=== PATIENT | female | born 1970 | race African-American/Black ===

== ENCOUNTER 2016-07-10 18:58 | Emergency (ER) | payer OTHER ==
[~2016-07-10] VITALS: Ht 149.9 cm; Wt 46.7 kg
[2016-07-10 19:14] VITALS: BP 113/77
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
[2016-07-10] MEDS ORDERED: CYCLOBENZAPRINE5 M2 PO (20:07)
[2016-07-10] MEDS ORDERED: PERCOCET 5-3251 EACH PO (20:07)
== END 2016-07-10 20:15 ==
LOC: ERH 18:58
DX: S16.1XXA Strain of muscle, fascia and tendon at neck level, initial encounter (principal); V49.50XA Passenger injured in collision with unspecified motor vehicles in traffic accident, initial encounter; Y92.410 Unspecified street and highway as the place of occurrence of the external cause
CPT/HCPCS: 81025

== ENCOUNTER 2017-08-02 17:30 | Emergency (ER) | payer OTHER ==
[~2017-08-02] VITALS: Ht 149.9 cm; Wt 49.9 kg
[~2017-08-02 17:30] MED LIST: CYCLOBENZAPRINE5 M2 PO; PERCOCET 5-3251 EACH PO
[2017-08-02 18:36] LABS: ABSOLUTE BASOPHIL COUNT 0 /CUMM (0.0-0.2); ABSOLUTE EOSINOPHIL COUNT 0 /CUMM (0.0-0.7); ABSOLUTE GRANULOCYTE CT 6.9 /CUMM (1.4-6.5); ABSOLUTE LYMPH COUNT 1.4 /CUMM (1.2-3.4); ABSOLUTE MONOCYTE COUNT 0.9 /CUMM (0.10-0.60); BASOPHIL % 0.2 % (0.0-2.0); EOSINOPHIL % 0.3 % (0-5); GRANULOCYTE % 74.8 % (42.2-75.2); MEAN CORPUSCULAR HGB 33.5 PG (27.0-31.0); MEAN CORPUSCULAR HGB CONC 33.7 G/DL (33.0-37.0); MEAN CORPUSCULAR VOLUME 99.2 FL (81.0-99.0); MEAN PLATELET VOLUME 9.3 FL (7.4-10.4); PLATELET COUNT 223 /CUMM (130-400); RBC DISTRIBUTION WIDTH 14.1 % (11.5-14.5); RED BLOOD CELL CT 4.24 /CUMM (4.20-5.40); WHITE BLOOD CELL COUNT 9.2 /CUMM (4.8-10.8)
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
[2017-08-02] MEDS ORDERED: METOPROLOL SUCC50 M2 PO (19:12)
[2017-08-02] MEDS ORDERED: OMEPRAZOLE20 M2 PO (19:12)
[2017-08-02] MEDS ORDERED: MELOXICAM15 M1 PO (19:12)
[2017-08-02] MEDS ORDERED: FLOVENT HFA12 G1 INH (19:13)
[2017-08-02] MEDS ORDERED: PROAIR HFA8.5 GM INH (19:13)
[2017-08-02 19:44] VITALS: BP 121/69
--- NOTE | 2017-08-02 20:01 | CT SCAN REPORT ---
EXAMINATION: CT ABDOMEN AND PELVIS WITH CONTRAST CLINICAL INFORMATION: Severe right-sided flank pain with UTI. COMPARISON: None available. TECHNIQUE: Multidetector volumetric imaging was performed of the abdomen and pelvis following IV administration of 95 mL of Optiray 320 intravenous contrast. Sagittal and coronal reformatted images were obtained on the technologist's workstation. FINDINGS: The lung bases are clear. The liver, spleen, adrenal glands, gallbladder, and pancreas are normal. There is no hydronephrosis and there is no nephrolithiasis. There are a few subtle striations within the periphery of the right renal nephrogram and there is mild right-sided perinephric fluid, findings suggesting the presence of pyelonephritis. There is also enhancement along the periphery of the renal collecting systems and ureters bilaterally suggesting ureteritis. There is a 2.9 cm left renal cyst. The large and small bowel are normal in caliber without evidence of mechanical obstruction. No focal inflammatory changes adjacent to the large or the small bowel. The appendix is normal. There is no free air and there is no intra-abdominal free fluid. No mesenteric or retroperitoneal adenopathy. There are multiple large uterine masses, most suggestive of uterine fibroids. There is a 3 cm right ovarian cyst. These findings can be further assessed with ultrasound. The bladder is decompressed and not well evaluated. There are no acute osseous abnormalities. No significant soft tissue abnormality. IMPRESSION: - There are a few subtle striations within the periphery of the right renal nephrogram and there is mild right-sided perinephric fluid, findings suggesting the presence of pyelonephritis given the clinical history. There is also enhancement along the periphery of the renal collecting systems and ureters bilaterally suggesting ureteritis. No hydronephrosis. The bladder is decompressed and not well evaluated. - There are multiple large uterine masses, most suggestive of uterine fibroids. There is a 3 cm right ovarian cyst. These findings can be further assessed with ultrasound. - There is a left renal cyst.
[2017-08-02] MEDS ORDERED: CIPRO500 M1 PO (20:18)
== END 2017-08-02 20:28 ==
LOC: ERH 17:30
PROVIDERS: Internal Medicine
DX: N10 Acute pyelonephritis (principal)
CPT/HCPCS: 74177; 81001; 81025; 87086; 96372; 96374; J0696; J1885